=== PATIENT | male | born 1995 | race Caucasian/White ===

== ENCOUNTER 2021-07-17 23:44 | Emergency (ER) | payer MEDICAID ==
[~2021-07-17] VITALS: Ht 167.6 cm; Wt 64.0 kg
[2021-07-17 23:47] VITALS: BP 112/86
[2021-07-18] MEDS ORDERED: LORAZEPAM 1MG TABLET PO ONE (00:15)
== END 2021-07-18 02:15 | disposition home or self-care (01) ==
LOC: ER 23:44
DX: T43.621A Poisoning by amphetamines, accidental (unintentional), initial encounter (principal); F15.180 Other stimulant abuse with stimulant-induced anxiety disorder; R00.2 Palpitations; Y92.89 Other specified places as the place of occurrence of the external cause
CPT/HCPCS: 71045; 99283